=== PATIENT | female | born 1985 | race Hispanic/Latino ===

== ENCOUNTER 2021-01-31 11:52 | Inpatient (IN) | payer OTHER ==
[2021-01-31] MEDS ORDERED: ACETAMINOPHEN 325 MG TAB PO PRN (13:45)
[2021-01-31] MEDS: SODIUM CHLORIDE 0.9% 1000ML 1,000 ML IV SCH ×2 (13:45→23:45)
[2021-01-31] MEDS ORDERED: DEXTROSE 50%-WATER 50 ML DISP.SYRIN IV PRN (14:15)
[2021-01-31] MEDS ORDERED: GLUCAGON 1MG KIT 1 MG ML IM PRN (14:15)
[2021-01-31 14:49] LABS: BASOPHILS % (AUTO) 0.1 % (0.0-5.0); HEMATOCRIT 39.3 % (36-48); LYMPHOCYTES % (AUTO) 9.5 % (21.0-51.0); MEAN CORPUSCULAR HEMOGLOBIN 31.1 pg (27.0-33.0); MEAN CORPUSCULAR HGB CONC 35.4 g/dL (32.0-36.0); MEAN CORPUSCULAR VOLUME 87.9 fL (79-99); PLATELET COUNT (AUTO) 221 K/uL (130-400); RED BLOOD CELL COUNT(AUTO) 4.47 MIL/uL (4.00-5.50); WHITE BLOOD COUNT (AUTO) 8.4 K/uL (4.8-10.8)
[2021-01-31 15:07] LABS: HEMOGLOBIN A1C 9.7 % (4.0-6.0)
[2021-01-31 15:13] LABS: POTASSIUM 3.8 mmol/L (3.5-5.1)
[2021-01-31 15:18] LABS: CREATININE 0.8 mg/dL (0.5-1.5)
[2021-01-31 17:18] VITALS: BP 97/61
[2021-01-31] MEDS: INSULIN HUMULIN R 100 UNIT/ML 3ML SQ SCH ×2 (17:52→20:20)
[2021-01-31] MEDS: MORPHINE SULFATE 2 MG/ML 1ML SYG IVP PRN (19:12)
[2021-01-31] MEDS ORDERED: FENO200C PO (19:28)
[2021-01-31] MEDS ORDERED: ATOR40TA71 PO (19:28)
[2021-01-31] MEDS ORDERED: METF-444 PO (19:28)
[2021-01-31] MEDS: FAMOTIDINE 20MG TAB 20 MG TAB PO SCH (19:42)
[2021-01-31 20:00] VITALS: BP 110/75
[2021-01-31 20:08] LABS: APPEARANCE,URINE Clear (CLEAR); BILIRUBIN,URINE Negative (NEGATIVE); COLOR,URINE Yellow (YELLOW); GLUCOSE, URINE (UA) 250 mg/dL (NEGATIVE); KETONES,URINE 40 mg/dL (NEGATIVE); LEUKOCYTE ESTERASE ,URINE Large (NEGATIVE); NITRATE,URINE Negative (NEGATIVE); OCCULT BLOOD,URINE Large (NEGATIVE); PH,URINE 7.5 (5.0-8.0); PROTEIN,URINE Trace mg/dL (NEGATIVE)
[2021-01-31 20:17] LABS: BACTERIA,URINE Few /HPF (None Seen)
[2021-01-31 20:18] LABS: SQUAMOUS EPITHELIAL CELL,UR 0-2 /HPF (0-2); WBC,URINE 26-50 /HPF (0-1)
[2021-02-01] VITALS (25 sets, daily range): BP systolic 107–132; BP diastolic 61–99
[2021-02-01] MEDS: MORPHINE SULFATE 2 MG/ML 1ML SYG IVP PRN ×4 (00:07→17:35)
[2021-02-01] MEDS: KETOROLAC TROMETHAMINE 15MG/ML IV PRN ×2 (02:09→05:58)
[2021-02-01] MEDS: SODIUM CHLORIDE 0.9% 1000ML 1,000 ML IV SCH ×2 (02:10→11:20)
[2021-02-01 05:31] LABS: BASOPHILS % (AUTO) 0.3 % (0.0-5.0); EOSINOPHILS % (AUTO) 0.2 % (0.0-8.0); HEMATOCRIT 37.4 % (36-48); LYMPHOCYTES % (AUTO) 17.9 % (21.0-51.0); MEAN CORPUSCULAR HEMOGLOBIN 29.8 pg (27.0-33.0); MEAN CORPUSCULAR HGB CONC 33.7 g/dL (32.0-36.0); MEAN CORPUSCULAR VOLUME 88.4 fL (79-99); MONOCYTES % (AUTO) 9.2 % (3.0-13.0); NEUTROPHILS % (AUTO) 71.9 % (40.0-77.0); PLATELET COUNT (AUTO) 204 K/uL (130-400); RED BLOOD CELL COUNT(AUTO) 4.23 MIL/uL (4.00-5.50); RED CELL DISTRIBUTION WIDTH 11.9 % (11.0-15.5); WHITE BLOOD COUNT (AUTO) 5.8 K/uL (4.8-10.8)
[2021-02-01 05:40] LABS: CREATININE 0.8 mg/dL (0.5-1.5); POTASSIUM 3.4 mmol/L (3.5-5.1)
[2021-02-01] MEDS: INSULIN HUMULIN R 100 UNIT/ML 3ML SQ SCH ×4 (06:02→21:00)
[2021-02-01] MEDS: LEVOFLOXACIN 500 MG/D5W 100 ML 100 ML IV SCH (09:23)
[2021-02-01] MEDS ORDERED: POTASSIUM CHLORIDE 20 MEQ ERTAB PO PRN (09:30)
[2021-02-01] MEDS ORDERED: LIDOCAINE HCL-MPF 1% 2ML VIAL IV PRN (09:30)
[2021-02-01] MEDS ORDERED: POTASSIUM CHLORIDE 10% ELIXIR 20 MEQ/15 ML UDCUP PO PRN (09:30)
[2021-02-01] MEDS ORDERED: POTASSIUM CHLORIDE 10MEQ/100ML 100 ML IV PRN (09:30)
[2021-02-01] MEDS: FAMOTIDINE 20MG TAB 20 MG TAB PO SCH (10:38)
[2021-02-01] MEDS: ONDANSETRON HCL 4 MG/2 ML VIAL IVP PRN (17:35)
[2021-02-01] MEDS ORDERED: IOHEXOL-350 50ML VIAL IV ONE (18:38)
[2021-02-01] MEDS ORDERED: PROPOFOL 10 MG/ML 20ML VIAL IV ONE (18:52)
[2021-02-01] MEDS ORDERED: MIDAZOLAM HCL 1 MG/ML 2ML VIAL ONE (18:52)
[2021-02-01] MEDS ORDERED: LIDOCAINE PF 2% 5ML ABBOJECT ONE (18:52)
[2021-02-01] MEDS ORDERED: SUCCINYLCHOLINE 200MG/10ML SYR ONE (18:52)
[2021-02-01] MEDS ORDERED: ROCURONIUM 10MG/1ML SYR 10 MG/ML ML ONE (18:52)
[2021-02-01] MEDS ORDERED: FENTANYL CITRATE PF 50 MCG/1 ML 2ML VIAL ONE (18:54)
[2021-02-01] MEDS ORDERED: ONDANSETRON HCL 4 MG/2 ML VIAL ONE (19:43)
[2021-02-01] MEDS ORDERED: GLYCOPYRROLATE 1 MG/5 ML SYRINGE ONE (19:43)
[2021-02-01] MEDS ORDERED: NEOSTIGMINE 5MG/5ML SYR IV ONE (19:44)
[2021-02-01] MEDS ORDERED: MEPERIDINE-PF 25 MG/ML SYG ONE ×2 (21:11→21:19)
[2021-02-02] VITALS (7 sets, daily range): BP systolic 97–127; BP diastolic 45–89
[2021-02-02] MEDS: FAMOTIDINE 20MG TAB 20 MG TAB PO SCH ×2 (00:08→07:59)
[2021-02-02] MEDS: KETOROLAC TROMETHAMINE 15MG/ML IV PRN (00:14)
[2021-02-02 05:51] LABS: BASOPHILS % (AUTO) 0.4 % (0.0-5.0); HEMATOCRIT 37.1 % (36-48); LYMPHOCYTES % (AUTO) 16.2 % (21.0-51.0); MEAN CORPUSCULAR VOLUME 88.3 fL (79-99); MONOCYTES % (AUTO) 8.4 % (3.0-13.0); NEUTROPHILS % (AUTO) 74.6 % (40.0-77.0); PLATELET COUNT (AUTO) 205 K/uL (130-400); RED CELL DISTRIBUTION WIDTH 11.9 % (11.0-15.5); WHITE BLOOD COUNT (AUTO) 5.4 K/uL (4.8-10.8)
[2021-02-02 06:19] LABS: CREATININE 0.7 mg/dL (0.5-1.5); POTASSIUM 3.6 mmol/L (3.5-5.1)
[2021-02-02] MEDS: ONDANSETRON HCL 4 MG/2 ML VIAL IVP PRN (07:55)
[2021-02-02] MEDS: MORPHINE SULFATE 2 MG/ML 1ML SYG IVP PRN (07:55)
[2021-02-02] MEDS: LEVOFLOXACIN 500 MG/D5W 100 ML 100 ML IV SCH (07:57)
[2021-02-02] MEDS: INSULIN HUMULIN R 100 UNIT/ML 3ML SQ SCH ×2 (09:18→11:46)
[2021-02-02] MEDS ORDERED: TRAM50TA4 PO (10:38)
[2021-02-02] MEDS ORDERED: LEVO500T89 PO (10:38)
== END 2021-02-02 15:10 | disposition home or self-care (01) | DRG 670 ==
LOC: OBSVTOIN 13:00 → 3BH 13:00
PROVIDERS: ADMIT Internal Medicine; ATTEND Internal Medicine
PROC: 0TC78ZZ Extirpation of Matter from Left Ureter, Via Natural or Artificial Opening Endoscopic (ICD-10-PCS; principal; 2021-02-01 19:34)
DX: N13.2 Hydronephrosis with renal and ureteral calculous obstruction (principal); E11.9 Type 2 diabetes mellitus without complications; E87.6 Hypokalemia; Z98.891 History of uterine scar from previous surgery; Z79.84 Long term (current) use of oral hypoglycemic drugs
CPT/HCPCS: 36415; 74018; 80048; 81001; 81025; 82948; 83036; 84443; 85025; 86850; 86900; 86901; 87088; G0378; J0330; J1815; J1885; J1956; J2001; J2175; J2250; J2405; J2704; J2710; J3010; J3490; J7030; Q9967